=== PATIENT | female | born 1970 | race Caucasian/White ===

== ENCOUNTER 2018-02-11 19:03 | Emergency (ER) | payer OTHER ==
[2018-02-11 19:26] LABS: GLUCOSE, URINE (UA) NEGATIVE (NEGATIVE); KETONES,URINE (UA) TRACE mg/dL (NEGATIVE); LEUKOCYTE ESTERASE, URINE NEGATIVE (NEGATIVE); NITRITE,URINE NEGATIVE (NEGATIVE); OCCULT BLOOD,URINE LARGE (NEGATIVE); PROTEIN,URINE TRACE mg/dL (NEGATIVE); UROBILINOGEN,URINE 1 (NORMAL) E.U./dL (NORMAL)
[2018-02-11] MEDS ORDERED: KETOROLAC 60 MG/2 ML VIAL IVP STA (19:29)
[2018-02-11] MEDS ORDERED: ONDANSETRON 4 MG/2 ML VIAL IVP STA ×2 (19:29→20:53)
[2018-02-11] MEDS ORDERED: SODIUM CHLORIDE 0.9% 1,000 ML IV ONE (19:29)
[2018-02-11 19:30] LABS: BASOPHILS # (AUTO) 0.1 10^3/uL (0.0-0.1); BASOPHILS % (AUTO) 0.8 %; EOSINOPHILS # (AUTO) 0.2 10^3/uL (0.0-0.7); EOSINOPHILS % (AUTO) 1.7 %; LYMPHOCYTES # (AUTO) 2.4 10^3/uL (1.5-3.5); LYMPHOCYTES % (AUTO) 21.4 %; MEAN CORPUSCULAR HEMOGLOBIN 32.2 pg (27.0-31.0); MEAN CORPUSCULAR HGB CONC 35.3 g/dL (32.0-36.0); MEAN CORPUSCULAR VOLUME 91.1 fL (81.0-99.0); MEAN PLATELET VOLUME 7.5 fL (7.9-10.8); MONOCYTES # (AUTO) 0.8 10^3/uL (0.0-1.0); NEUTROPHILS # (AUTO) 7.6 10^3/uL (1.5-6.6); NEUTROPHILS % (AUTO) 69.1 %; PLT - PLATELET COUNT 267 10^3/uL (130-450); RED BLOOD COUNT 4.66 10^6/uL (4.20-5.40); RED CELL DISTRIBUTION WIDTH 13.2 % (12.0-15.0)
--- NOTE | 2018-02-11 19:32 | ED Physician Documentation ---
PD HPI ABD PAIN - Stated complaint Stated Complaint: URQ PX - Chief complaint Chief Complaint: Abd Pain - History obtained from History obtained from: Patient - History of Present Illness Pain level max: 7 Pain level now: 6 Quality: Aching, Pain Location: RUQ Improved by: Other (nothing) Worsened by: Eating Associated symptoms: Nausea. No: Fever, Vomiting, Hematemesis, Diarrhea, Constipation, Melena, Hematochezia Similar symptoms before: No diagnosis, Work up / diagnostics (multiple ultrasounds, multiple HIDA scans. also normal endosopies per patient.) Recently seen: Not recently seen - Additional information Additional information: Patient is a 47-year-old female who presents to the emergency department with right upper quadrant abdominal pain. This is been intermittent for the past 20 years. Has had multiple normal CAT scans, ultrasounds and HIDA scans in the past. Has also seen nephrology for chronic hematuria. No cause found. States her father had the same thing. Pain has increased recently. No fevers. Review of Systems Constitutional: denies: Fever, Chills Ears: denies: Ear pain Nose: denies: Rhinorrhea / runny nose, Congestion Throat: denies: Sore throat Cardiac: denies: Chest pain / pressure Respiratory: denies: Cough GI: denies: Hematemesis, Bloody / black stool : denies: Dysuria, Frequency, Hesitancy Skin: denies: Rash Musculoskeletal: denies: Neck pain, Back pain Neurologic: denies: Headache PD PAST MEDICAL HISTORY - Past Medical History Past Medical History: No - Past Surgical History Past Surgical History: Yes - Present Medications Home Medications: Ambulatory Orders Medication Instructions Recorded Confirmed Oxycodone HCl/Acetaminophen 1 - 2 each PO Q6H PRN #10 tablet 02/11/18 [Percocet 5-325 mg Tablet] Promethazine [Phenergan] 25 mg PO Q6H PRN #10 tab 02/11/18 - Allergies Allergies/Adverse Reactions: Allergies Allergy/AdvReac Type Severity Reaction Status Date / Time No Known Drug Allergies Allergy Verified 02/11/18 19:11 - Social History Does the pt smoke?: Yes Smoking Status: Current every day smoker Does the pt drink ETOH?: No Does the pt have substance abuse?: No - Immunizations Immunizations are current?: Yes - POLST Patient has POLST: No PD ED PE NORMAL - Vitals Vital signs reviewed: Yes - General General: Alert and oriented X 3, No acute distress, Well developed/nourished - HEENT HEENT: PERRL, Moist mucous membranes - Neck Neck: Supple, no meningeal sign - Cardiac Cardiac: RRR - Respiratory Respiratory: No respiratory distress, Clear bilaterally - Abdomen Abdomen: Soft, Non distended, Other (mild TTP RUQ, neg santos's sign) - Back Back: No CVA TTP, No spinal TTP - Derm Derm: Warm and dry, No rash - Extremities Extremities: No edema - Neuro Neuro: Alert and oriented X 3 - Psych Psych: Normal mood, Normal affect Results - Vitals Vitals: Vital Signs - 24 hr 02/11/18 02/11/18 02/11/18 19:08 21:22 21:48 Temperature 37.0 C Heart Rate 82 64 94 Respiratory 16 18 18 Rate Blood Pressure 113/76 115/78 117/80 O2 Saturation 96 97 99 02/11/18 22:15 Temperature Heart Rate 83 Respiratory 15 Rate Blood Pressure 118/74 O2 Saturation 100 Oxygen O2 Source Room air - Labs Labs: Laboratory Tests 02/11/18 02/11/18 02/11/18 19:15 19:20 19:20 WBC 11.0 H RBC 4.66 Hgb 15.0 Hct 42.5 MCV 91.1 MCH 32.2 H MCHC 35.3 RDW 13.2 Plt Count 267 MPV 7.5 L Neut # (Auto) 7.6 H Lymph # (Auto) 2.4 [place] # (Auto) 0.8 Eos # (Auto) 0.2 Baso # (Auto) 0.1 Absolute Nucleated RBC 0.00 Nucleated RBC % 0.0 Sodium 134 L Potassium 3.3 L Chloride 101 Carbon Dioxide 27 Anion Gap 6.0 BUN 9 Creatinine 0.7 Estimated GFR (MDRD) 90 Glucose 104 H Calcium 9.0 Total Bilirubin 0.9 AST 20 ALT 12 Alkaline Phosphatase 50 Total Protein 7.8 Albumin 4.1 Globulin 3.7 Albumin/Globulin Ratio 1.1 Lipase 33 Urine Color YELLOW Urine Clarity SL. CLOUDY Urine pH 5.0 Ur Specific [place] >=1.030 H Urine Protein TRACE Urine Glucose (UA) NEGATIVE Urine Ketones TRACE Urine Occult Blood LARGE H Urine Nitrite NEGATIVE Urine Bilirubin NEGATIVE Urine Urobilinogen 1 (NORMAL) Ur Leukocyte Esterase NEGATIVE Urine RBC 11-25 H Urine WBC 0-3 Ur Squamous Epith Cells RARE Squamous Urine Bacteria None Seen Urine Mucus Marked Strands Ur Microscopic Review INDICATED Urine Culture Comments NOT INDICATED - Rads (name of study) RUQ US Radiology: Prelim report reviewed, EMP read contemporaneously, See rad report ( : Normal. No cholelithiasis or cholecystitis. ) PD MEDICAL DECISION MAKING - ED course Complexity details: reviewed results, re-evaluated patient, considered differential, d/w patient ED course: Patient is a 47-year-old female with chronic abdominal pain of unclear etiology. No acute laboratory findings to explain her symptoms. Has chronic hematuria. No evidence of hydronephrosis on ultrasound. Normal right upper quadrant ultrasound. Possible that she still has biliary dysfunction, may benefit from another HIDA scan or at least a referral to general surgery as well as gastroenterology. She will follow-up with her doctor for this. Pain well controlled here. Tolerating p.o. well. She is well-appearing, nontoxic. Abdomen is soft, nontender nondistended on serial exam. Patient counseled regarding signs and symptoms for which I believe and urgent re-evaluation would be necessary. Patient with good understanding of and agreement to plan and is comfortable going home at this time This document was made in part using voice recognition software. While efforts are made to proofread this document, sound alike and grammatical errors may occur. - Sepsis Event Vital Signs: Vital Signs - 24 hr 02/11/18 02/11/18 02/11/18 19:08 21:22 21:48 Temperature 37.0 C Heart Rate 82 64 94 Respiratory 16 18 18 Rate Blood Pressure 113/76 115/78 117/80 O2 Saturation 96 97 99 02/11/18 22:15 Temperature Heart Rate 83 Respiratory 15 Rate Blood Pressure 118/74 O2 Saturation 100 Oxygen O2 Source Room air Departure - Departure Disposition: 01 Home, Self Care Clinical Impression: Abdominal pain Qualifiers: Abdominal location: upper abdomen, unspecified Qualified Code(s): R10.10 - Upper abdominal pain, unspecified Hematuria Qualifiers: Hematuria type: other microscopic Qualified Code(s): R31.29 - Other microscopic hematuria Condition: Good Instructions: ED Abdominal Pain Unkn Cause Follow-Up: KRYSTIN GROSS [Primary Care Provider] - Within 1 week Prescriptions: Oxycodone HCl/Acetaminophen [Percocet 5-325 mg Tablet] 1 - 2 each PO Q6H PRN # 10 tablet PRN Reason: pain Promethazine [Phenergan] 25 mg PO Q6H PRN #10 tab PRN Reason: Nausea / Vomiting Comments: The cause of your symptoms today is unclear. Return if you worsen. It is recommended that you follow-up with general surgery to have your gallbladder evaluated as this may be causing your symptoms. You also could have a problem with her gastrointestinal tract and may benefit from a referral to GI. Do not drink alcohol or drive while on narcotic pain medicine. Note that many narcotic pain relievers also contain tylenol/acetaminophen. Please ensure that your total dose of acetaminophen from all sources does not exceed 3 grams (3000mg) per day. You may constipated on this medication, take a stool softener such as "Colace" twice a day while you are on it. Also recommend a vjkl-phg-wtyhtis laxative such as senna or MiraLAX any day that you do not have a bowel movement. If you received narcotic pain medication in the emergency department, do not drive or operate machinery for the next 24 hours. Discharge Date/Time: 02/11/18 22:22
[2018-02-11 19:37] LABS: BACTERIA,URINE None Seen /HPF (None Seen); BILIRUBIN,URINE NEGATIVE (NEGATIVE); CLARITY,URINE SL. CLOUDY (CLEAR); ICTOTEST,URINE NEGATIVE; MUCUS,URINE Marked Strands; SQUAMOUS EPITHELIAL CELL,UR RARE Squamous (<= Few)
[2018-02-11 19:41] LABS: ALBUMIN 4.1 g/dL (3.2-5.5); ALBUMIN/GLOBULIN RATIO 1.1 (1.0-2.2); BILIRUBIN,TOTAL 0.9 mg/dL (0.2-1.0); CREATININE 0.7 mg/dL (0.4-1.0); TOTAL PROTEIN 7.8 g/dL (6.7-8.2)
[2018-02-11] MEDS ORDERED: HYOSCYAMINE SL 0.125 MG TABLET SL STA (20:43)
--- NOTE | 2018-02-11 20:55 | Ultrasound Report ---
Procedure Date: 02/11/2018 Accession Number: [id number] / [id number] Procedure: US - Abdomen Limited CPT Code: FULL RESULT: EXAM: ABDOMEN ULTRASOUND LIMITED, RUQ EXAM DATE: 02/11/2018 08:23 PM. CLINICAL HISTORY: RUQ pain. Nausea. COMPARISON: None. TECHNIQUE: Real-time scanning was performed with static images obtained. FINDINGS: Liver: Normal in size and echotexture. 16.7 cm. Main portal vein flow: Hepatopetal. Gallbladder: Normal. No stones, wall thickening, or sonographic Dunham's sign. Biliary System: CBD measures 3 mm. No intrahepatic or extrahepatic ductal dilatation. Other: The visualized pancreas and right kidney are unremarkable. No free fluid. IMPRESSION: Normal. No cholelithiasis or cholecystitis. RADIA
[2018-02-11] MEDS ORDERED: PROMETHAZINE INJ 25 MG in SODIUM CHLORIDE 0.9% 50 ML IV STA (21:10)
[2018-02-11] MEDS ORDERED: HYDROmorphone 2 MG/ML VIAL IVP STA (21:10)
[2018-02-11 22:15] VITALS: BP 118/74
== END 2018-02-11 22:22 | disposition home or self-care (01) ==
LOC: ED 19:03
DX: R10.10 Upper abdominal pain, unspecified (principal); R31.29 Other microscopic hematuria; R11.0 Nausea
CPT/HCPCS: 36415; 76705; 80053; 81001; 83690; 85025; 96361; 96365; 96375; 96376; 99283; A9270; J1170; J7040; 81003; 87086

== ENCOUNTER 2019-01-22 22:03 | Emergency (ER) | payer OTHER ==
--- NOTE | 2019-01-22 22:15 | ED Physician Documentation ---
History of Present Illness - Stated complaint Stated Complaint: RT SIDE PX/NAUSEA/CHILLS/FEVER - Chief complaint Chief Complaint: Abd Pain - History obtained from History obtained from: Patient - Additonal information Additional information: Patient is a 40-year-old female with many year history of abdominal pain presenting with acute on chronic right upper quadrant pain. Patient reports that over the past 1 week she has had waxing and waning right upper quadrant pain, which is usually worse after eating. Patient reports this pain radiates towards her back in her right shoulder. Patient also complains of nausea without vomiting and otherwise denies fever, urinary changes, stool changes. Patient has received previous work-ups including ultrasounds, endoscopies, and HIDA scans without specific diagnoses. Patient reports that her primary care physician is reluctant to refer her to a surgeon for gallbladder removal. No other improving or worsening factors noted. Review of Systems Constitutional: denies: Fever GI: reports: Abdominal Pain, Nausea. denies: Vomiting PD PAST MEDICAL HISTORY - Past Medical History Past Medical History: No - Past Surgical History Past Surgical History: No - Present Medications Home Medications: Ambulatory Orders Medication Instructions Recorded Confirmed Oxycodone HCl/Acetaminophen 1 - 2 each PO Q6H PRN #10 tablet 02/11/18 [Percocet 5-325 mg Tablet] Promethazine [Phenergan] 25 mg PO Q6H PRN #10 tab 02/11/18 - Allergies Allergies/Adverse Reactions: Allergies Allergy/AdvReac Type Severity Reaction Status Date / Time No Known Drug Allergies Allergy Verified 01/22/19 22:08 - Social History Does the pt smoke?: Yes Smoking Status: Current every day smoker Does the pt drink ETOH?: No Does the pt have substance abuse?: No - Immunizations Immunizations are current?: Yes - POLST Patient has POLST: No PD ED PE NORMAL - Vitals Vital signs reviewed: Yes - General General: Alert and oriented X 3, No acute distress, Well developed/nourished - Cardiac Cardiac: RRR, No murmur - Respiratory Respiratory: No respiratory distress, Clear bilaterally - Abdomen Abdomen: Normal bowel sounds, Soft, Non tender (No significant tenderness with palpation. Negative Dunham sign, McBurney's point. No guarding or rebound.), Non distended - Derm Derm: Normal color, Warm and dry, No rash - Extremities Extremities: No deformity, No tenderness to palpate - Neuro Neuro: Alert and oriented X 3, No motor deficit, No sensory deficit - Psych Psych: Normal mood, Normal affect Results - Vitals Vitals: Vital Signs - 24 hr 01/22/19 01/22/19 01/22/19 22:06 22:35 23:03 Temperature 36.7 C Heart Rate 68 60 Respiratory 17 16 17 Rate Blood Pressure 123/72 116/75 O2 Saturation 99 99 01/22/19 01/22/19 23:06 23:45 Temperature Heart Rate 66 53 L Respiratory 16 16 Rate Blood Pressure 128/87 H O2 Saturation 100 98 Oxygen O2 Source Room air - Labs Labs: Laboratory Tests 01/22/19 01/22/19 22:26 22:26 WBC 9.9 RBC 4.51 Hgb 13.9 Hct 40.1 MCV 88.9 MCH 30.7 MCHC 34.6 RDW 12.7 Plt Count 236 MPV 7.5 L Neut # (Auto) 5.9 Lymph # (Auto) 3.0 [place] # (Auto) 0.6 Eos # (Auto) 0.3 Baso # (Auto) 0.1 Absolute Nucleated RBC 0.01 Nucleated RBC % 0.1 Sodium 136 Potassium 3.9 Chloride 102 Carbon Dioxide 25 Anion Gap 9.0 BUN 12 Creatinine 1.1 H Estimated GFR (MDRD) 53 L Glucose 98 Calcium 8.7 Total Bilirubin 0.5 AST 15 ALT 11 Alkaline Phosphatase 36 L Total Protein 7.2 Albumin 3.8 Globulin 3.4 Albumin/Globulin Ratio 1.1 Lipase 50 PD MEDICAL DECISION MAKING - ED course Complexity details: reviewed old records, reviewed results, re-evaluated patient, considered differential, d/w patient, d/w family ED course: Given patient's location of discomfort, associated symptoms, and physical exam findings have highest suspicion for gallbladder disease such as biliary colic. Have low suspicion for acute cholecystitis or ascending cholangitis, as well as liver disease, pancreatitis, appendicitis, small bowel obstruction, diverticulitis, AAA, or pelvic etiologies, but considered. Patient has been suffering from this discomfort for many years with negative work-ups. Patient started on IV fluid, as well as pain and nausea medication. Screening lab work, urinalysis, and ultrasound ordered.Screening lab work returned relatively unremarkable, as did ultrasound. Patient did complain of headache which was addressed with ibuprofen during ED stay. Requested urine repeatedly, however, patient declined to provide such and also declined to receive more IV fluidsIn order to produce urine. Patient is requesting discharge home. At this time, feel that she is capable of making such a decision and that she is otherwise not at risk for emergent pathology. Recommended close primary care follow-up, as well as provided instructions on supportive cares and strict return precautions. Departure - Departure Disposition: 01 Home, Self Care Clinical Impression: Abdominal pain Qualifiers: Abdominal location: right upper quadrant Qualified Code(s): R10.11 - Right upper quadrant pain Condition: Good Instructions: ED Abdominal Pain Unkn Cause Follow-Up: KRYSTIN GROSS [Primary Care Provider] - Within 3 Days Comments: Recommend hydration with Powerade/Gatorade and advancing diet as tolerated. Can also consider avoiding certain foods such as fried foods, fatty foods, dairy or other foods that worsen your pain.Please follow-up with your primary care physician in next 2 to 3 days.Return to ED sooner if experience worsening symptoms or other concerns.
[2019-01-22] MEDS ORDERED: fentaNYL 100 MCG/2 ML VIAL IVP STA (22:21)
[2019-01-22] MEDS ORDERED: ONDANSETRON 4 MG/2 ML VIAL IVP STA (22:21)
[2019-01-22] MEDS ORDERED: SODIUM CHLORIDE 0.9% 1,000 ML IV ONE (22:21)
[2019-01-22 22:34] LABS: BASOPHILS # (AUTO) 0.1 10^3/uL (0.0-0.1); BASOPHILS % (AUTO) 0.6 %; EOSINOPHILS # (AUTO) 0.3 10^3/uL (0.0-0.7); EOSINOPHILS % (AUTO) 3.4 %; HGB - HEMOGLOBIN 13.9 g/dL (12.0-16.0); MEAN CORPUSCULAR HEMOGLOBIN 30.7 pg (27.0-31.0); MEAN CORPUSCULAR HGB CONC 34.6 g/dL (32.0-36.0); MEAN CORPUSCULAR VOLUME 88.9 fL (81.0-99.0); MEAN PLATELET VOLUME 7.5 fL (7.9-10.8); MONOCYTES # (AUTO) 0.6 10^3/uL (0.0-1.0); MONOCYTES % (AUTO) 6.3 %; NEUTROPHILS # (AUTO) 5.9 10^3/uL (1.5-6.6); NEUTROPHILS % (AUTO) 59.7 %; PLT - PLATELET COUNT 236 10^3/uL (130-450); RED BLOOD COUNT 4.51 10^6/uL (4.20-5.40); RED CELL DISTRIBUTION WIDTH 12.7 % (12.0-15.0); WHITE BLOOD COUNT 9.9 x10^3/uL (4.8-10.8)
[2019-01-22 22:51] LABS: ALBUMIN 3.8 g/dL (3.2-5.5); ALBUMIN/GLOBULIN RATIO 1.1 (1.0-2.2); BILIRUBIN,TOTAL 0.5 mg/dL (0.2-1.0); CALCIUM 8.7 mg/dL (8.5-10.3); CREATININE 1.1 mg/dL (0.4-1.0); TOTAL PROTEIN 7.2 g/dL (6.7-8.2)
--- NOTE | 2019-01-22 23:44 | Ultrasound Report ---
Reason: Gallbladder-RUQ pain with nausea, worse after eat Procedure Date: 01/22/2019 Accession Number: [id number] / [id number] Procedure: US - Abdomen Limited CPT Code: FULL RESULT: EXAM: ABDOMEN ULTRASOUND LIMITED, RUQ EXAM DATE: 01/22/2019 11:00 PM. CLINICAL HISTORY: Gallbladder-right upper quadrant pain with nausea, worse after eating. COMPARISON: ABDOMEN LIMITED 02/11/2018 7:56 PM, ABDOMEN/PELVIS W/O 04/05/2013 2:15 AM. TECHNIQUE: Real-time scanning was performed with static images obtained. FINDINGS: Liver: Echotexture within normal limits without suspicious abnormality seen. Main portal vein flow: Hepatopetal. Gallbladder: No stones, wall thickening, or sonographic Dunham's sign. Biliary System: CBD measures 3 mm. No intrahepatic or extrahepatic ductal dilatation. Other: None. IMPRESSION: Stable negative right upper quadrant ultrasound. RADIA
[2019-01-22] MEDS ORDERED: IBUPROFEN 600 MG TABLET PO STA (23:49)
[2019-01-22] MEDS ORDERED: IBUPROFEN 800 MG TABLET PO STA (23:53)
[2019-01-23] MEDS ORDERED: SODIUM CHLORIDE 0.9% 1,000 ML IV ONE (00:24)
[2019-01-23 00:47] VITALS: BP 116/75
== END 2019-01-23 00:50 | disposition home or self-care (01) ==
LOC: ED 22:03
DX: R10.11 Right upper quadrant pain (principal); F17.200 Nicotine dependence, unspecified, uncomplicated
CPT/HCPCS: 36415; 76705; 80053; 83690; 85025; 96361; 96374; 99283; A9270

== ENCOUNTER 2019-10-18 21:56 | Emergency (ER) | payer OTHER ==
[2019-10-18 22:47] LABS: BILIRUBIN,URINE NEGATIVE (NEGATIVE); GLUCOSE, URINE (UA) NEGATIVE (NEGATIVE); KETONES,URINE (UA) NEGATIVE (NEGATIVE); LEUKOCYTE ESTERASE, URINE SMALL (NEGATIVE); NITRITE,URINE POSITIVE (NEGATIVE); OCCULT BLOOD,URINE LARGE (NEGATIVE); PROTEIN,URINE TRACE mg/dL (NEGATIVE); UROBILINOGEN,URINE 0.2 (NORMAL) E.U./dL (NORMAL)
--- NOTE | 2019-10-18 22:47 | ED Physician Documentation ---
PD HPI FEMALE - Stated complaint Stated Complaint: FEMALE - Chief complaint Chief Complaint: Abd Pain - History obtained from History obtained from: Patient - History of Present Illness Timing - onset: Yesterday Timing - details: Gradual onset Associated symptoms: Dysuria, Urinary frequency. 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 : None HEENT: None Psych: None Musculoskeletal: None Derm: Other Other Past Medical History: Pilonidal Cyst - Past Surgical History Past Surgical History: Yes Ortho: Other - Present Medications Home Medications: Ambulatory Orders Medication Instructions Recorded Confirmed Nitrofurantoin Monohyd/M-Cryst 100 mg PO BID #10 capsule 10/18/19 [Macrobid 100 mg Capsule] Phenazopyridine HCl [Pyridium] 200 mg PO TID PRN #6 tablet 10/18/19 - Allergies Allergies/Adverse Reactions: Allergies Allergy/AdvReac Type Severity Reaction Status Date / Time No Known Drug Allergies Allergy Verified 10/18/19 22:22 - Social History Does the pt smoke?: Yes Smoking Status: Current every day smoker Does the pt drink ETOH?: No Does the pt have substance abuse?: No - Immunizations Immunizations are current?: Yes - POLST Patient has POLST: No PD ED PE NORMAL - Vitals Vital signs reviewed: Yes - General General: Alert and oriented X 3, No acute distress, Well developed/nourished - Abdomen Abdomen: Soft, Non tender - Back Back: No CVA TTP Results - Vitals Vitals: Vital Signs - 24 hr 10/18/19 10/18/19 22:10 23:08 Temperature 36.6 C 36.6 C Heart Rate 61 55 L Respiratory 18 18 Rate Blood Pressure 136/74 H 122/73 O2 Saturation 98 99 Oxygen O2 Source Room air - Labs Labs: Laboratory Tests 10/18/19 22:14 Urine Color YELLOW Urine Clarity HAZY Urine pH 6.0 Ur Specific [place] 1.020 Urine Protein TRACE Urine Glucose (UA) NEGATIVE Urine Ketones NEGATIVE Urine Occult Blood LARGE H Urine Nitrite POSITIVE H Urine Bilirubin NEGATIVE Urine Urobilinogen 0.2 (NORMAL) Ur Leukocyte Esterase SMALL H Urine RBC TNTC H Urine WBC >25 H Ur Squamous Epith Cells FEW Squamous Urine Bacteria Many H Ur Microscopic Review INDICATED Urine Culture Comments INDICATED PD MEDICAL DECISION MAKING - ED course Complexity details: reviewed results, considered differential, d/w patient Departure - Departure Disposition: 01 Home, Self Care Clinical Impression: Urinary tract infection Condition: Good Instructions: ED UTI Cystitis Female Prescriptions: Nitrofurantoin Monohyd/M-Cryst [Macrobid 100 mg Capsule] 100 mg PO BID #10 caps ule Phenazopyridine HCl [Pyridium] 200 mg PO TID PRN #6 tablet PRN Reason: dysuria Discharge Date/Time: 10/18/19 23:20
[2019-10-18 22:48] LABS: CLARITY,URINE HAZY (CLEAR)
[2019-10-18 22:53] LABS: BACTERIA,URINE Many /HPF (None Seen); RBC,URINE TNTC /HPF (0-5); SQUAMOUS EPITHELIAL CELL,UR FEW Squamous (<= Few)
[2019-10-18] MEDS ORDERED: NITROFURANTOIN MACRO 100 MG CAPSULE PO STA (23:03)
[2019-10-18] MEDS ORDERED: PHENAZOPYRIDINE 100 MG TABLET PO STA (23:03)
[2019-10-18 23:09] VITALS: BP 122/73
== END 2019-10-18 23:20 | disposition home or self-care (01) ==
LOC: ED 21:56
DX: N39.0 Urinary tract infection, site not specified (principal); F17.200 Nicotine dependence, unspecified, uncomplicated
CPT/HCPCS: 81001; 87077; 87086; 87181; 99283; A9270; 81003

== ENCOUNTER 2020-05-01 16:31 | Emergency (ER) | payer OTHER ==
[2020-05-01] MEDS ORDERED: oxyCODONE 5 MG TABLET PO STA (17:38)
[2020-05-01] MEDS ORDERED: DEXAMETHASONE 10 MG/ML VIAL PO STA (17:38)
[2020-05-01] MEDS ORDERED: CHERRY SYRUP 10 ML UDC PO ONE (17:38)
--- NOTE | 2020-05-01 17:40 | ED Physician Documentation ---
PD HPI BACK PAIN - Stated complaint Stated Complaint: BACK PX - Chief complaint Chief Complaint: Back Pain - History obtained from History obtained from: Patient - History of Present Illness Timing - onset: Yesterday Timing - duration: Days (2) Timing - details: Gradual onset Pain level max: 9 Pain level now: 9 Location: Lower, Right Quality: Pain, Sharp Associated symptoms: No: Fever, Weakness, Numbness, Incontinent of urine, Unable to urinate, Hematuria, Incontinent of stool Improves with: Rest Worsened by: Movement Contributing factors: Other (bending over). 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 : None HEENT: None Psych: None Musculoskeletal: None Derm: Other - Past Surgical History Past Surgical History: Yes General: Cholecystectomy Ortho: Other - Present Medications Home Medications: Ambulatory Orders Medication Instructions Recorded Confirmed Nitrofurantoin Monohyd/M-Cryst 100 mg PO BID #10 capsule 10/18/19 [Macrobid 100 mg Capsule] Phenazopyridine HCl [Pyridium] 200 mg PO TID PRN #6 tablet 10/18/19 Meloxicam [Mobic] 7.5 mg PO BID PRN #20 tablet 05/01/20 Methylprednisolone [Medrol] 4 mg PO DAILY #1 tab.ds.pk 05/01/20 Oxycodone HCl/Acetaminophen 1 - 2 each PO Q6H PRN #14 tablet 05/01/20 [Percocet 5-325 mg Tablet] - Allergies Allergies/Adverse Reactions: Allergies Allergy/AdvReac Type Severity Reaction Status Date / Time No Known Drug Allergies Allergy Verified 05/01/20 16:41 - Social History Does the pt smoke?: No Smoking Status: Never smoker Does the pt drink ETOH?: No Does the pt have substance abuse?: No - Immunizations Immunizations are current?: Yes - POLST Patient has POLST: No PD ED PE NORMAL - Vitals Vital signs reviewed: Yes - General General: Alert and oriented X 3, No acute distress, Well developed/nourished - HEENT HEENT: Moist mucous membranes - Neck Neck: Supple, no meningeal sign - Cardiac Cardiac: RRR - Respiratory Respiratory: No respiratory distress, Clear bilaterally - Abdomen Abdomen: Soft, Non tender, Non distended - Back Back: No spinal TTP (No midline tenderness palpation or percussion. She is tender over the right sacroiliac joint. Reproduces her pain.) - Derm Derm: Warm and dry - Extremities Extremities: Other (Normal bilateral lower extremity patellar and ankle jerk reflexes. Normal great toe extension bilaterally. no saddle anesthesia) - Neuro Neuro: Alert and oriented X 3, No motor deficit, No sensory deficit - Psych Psych: Normal mood, Normal affect Results - Vitals Vitals: Vital Signs - 24 hr 05/01/20 05/01/20 16:39 17:51 Temperature 36.8 C 36.9 C Heart Rate 81 68 Respiratory 18 19 Rate Blood Pressure 124/67 128/78 O2 Saturation 97 100 Oxygen O2 Source Room air PD MEDICAL DECISION MAKING - ED course Complexity details: considered differential (No cauda equina, no spinal epidural abscess, no fracture, no aortic dissection or evidence of aneursym rupture), d/w patient ED course: Patient with what appears to be right-sided sacroiliitis causing sciatica. Will place on a steroid taper. Patient is well-appearing, nontoxic. Afebrile. No IV drug use. No red flags. No evidence of cauda equina, epidural abscess. Patient counseled regarding signs and symptoms for which I believe and urgent re-evaluation would be necessary. Patient with good understanding of and agreement to plan and is comfortable going home at this time This document was made in part using voice recognition software. While efforts are made to proofread this document, sound alike and grammatical errors may occur. Departure - Departure Disposition: 01 Home, Self Care Clinical Impression: Sacroiliitis Sciatica Qualifiers: Laterality: right Qualified Code(s): M54.31 - Sciatica, right side Condition: Good Instructions: ED Sacroiliitis, ED Sciatica Follow-Up: SHAMEKA DONNELLY ARNP [Primary Care Provider] - Within 1 week Prescriptions: Methylprednisolone [Medrol] 4 mg PO DAILY #1 tab.ds.pk Meloxicam [Mobic] 7.5 mg PO BID PRN #20 tablet PRN Reason: Pain Oxycodone HCl/Acetaminophen [Percocet 5-325 mg Tablet] 1 - 2 each PO Q6H PRN #14 tablet PRN Reason: pain Comments: Return if you worsen. Follow-up with your doctor for further care. This should improve over the next few days. Continue gentle stretching at home. Do not drink alcohol or drive while on narcotic pain medicine. Note that many narcotic pain relievers also contain tylenol/acetaminophen. Please ensure that your total dose of acetaminophen from all sources does not exceed 3 grams (3000mg) per day. You may constipated on this medication, take a stool softener such as "Colace" twice a day while you are on it. Also recommend a ijcl-dvk-zogasfy laxative such as senna or MiraLAX any day that you do not have a bowel movement. If you received narcotic pain medication in the emergency department, do not drive or operate machinery for the next 24 hours. Discharge Date/Time: 05/01/20 17:53
[2020-05-01 17:52] VITALS: BP 128/78
== END 2020-05-01 17:53 | disposition home or self-care (01) ==
LOC: ED 16:31
DX: M46.1 Sacroiliitis, not elsewhere classified (principal); M54.41 Lumbago with sciatica, right side
CPT/HCPCS: 99283; 99284; A9270

== ENCOUNTER 2020-08-19 19:28 | Outpatient (CLI) | payer OTHER | END 2020-08-19 19:29 | disposition home or self-care (01) | LOC: COV 19:28 | PROVIDERS: ATTEND Family Medicine | DX: Z20.828 Contact with and (suspected) exposure to other viral communicable diseases (principal) ==

== ENCOUNTER 2020-10-22 18:02 | Outpatient (CLI) | payer OTHER ==
--- NOTE | 2020-10-22 18:59 | XRAY Report ---
PROCEDURE: Shoulder 3 View RT INDICATIONS: R SHOULDER PX TECHNIQUE: 3 views of the shoulder were acquired. COMPARISON: None. FINDINGS: Bones: No fractures or dislocations. No suspicious bony lesions. Visualized ribs appear intact. H umeral head is high riding. Moderate acromial clavicular narrowing. Soft tissues: No suspicious soft tissue calcifications. IMPRESSION: 1. Moderate acromioclavicular narrowing. 2. High riding humeral head which can be seen with rotator cuff pathology. Reviewed by: Venus Santos MD on 10/22/2020 5:57 PM [facility] Approved by: Venus Santos MD on 10/22/2020 5:57 PM [facility] Station ID: [id number]
== END 2020-10-22 23:59 | disposition home or self-care (01) ==
LOC: DI.N 18:02
PROVIDERS: ATTEND Physician Assistant
DX: M25.511 Pain in right shoulder (principal)